=== PATIENT | female | born 1935 | race Caucasian/White ===

== ENCOUNTER → 2019-05-02 | Outpatient (CLI) | payer OTHER ==
[~2019-05-02] MED LIST: ASA81BEC PO; CRESTOR20 MG PO; EVISTA PO; EYE DROP TEARS15 ML OPHTHALMIC; FUROSEMIDE 40 M40 MG PO; HYDRALAZINE 2525 MG PO; LEVEMIR FL100 UNIT/2 SUBQ; NORVASC10 MG PO; PRESERVISION T1 EACH PO; SYNTHROID75 MCG PO; TRADJENTA5 MG PO; TYLENOL EXTRA500 MG PO; ULORIC40 MG PO; ZETIA10 MG PO
== END ==
LOC: EDUNIT# → M.MRI 16:26
DX: S83.206A Unspecified tear of unspecified meniscus, current injury, right knee, initial encounter (principal); S83.411A Sprain of medial collateral ligament of right knee, initial encounter; R41.3 Other amnesia; X58.XXXA Exposure to other specified factors, initial encounter; Y93.89 Activity, other specified; Y92.89 Other specified places as the place of occurrence of the external cause; Y99.8 Other external cause status

== ENCOUNTER 2019-05-23 08:50 | Inpatient (IN) | payer OTHER ==
[2019-05-11 09:24] LABS: URINE BILIRUBIN NEGATIVE (Negative); URINE BLOOD NEGATIVE (Negative); URINE CLARITY CLEAR; URINE COLOR YELLOW; URINE GLUCOSE-RANDOM NEGATIVE (Negative); URINE KETONES NEGATIVE (Negative); URINE LEUKOCYTES-REFLEX TRACE (Negative); URINE NITRITE-REFLEX NEGATIVE (Negative); URINE PROTEIN NEGATIVE (Negative); URINE SPECIFIC GRAVITY <= 1.005 (1.005-1.030); URINE UROBILINOGEN 0.2 E.U./dl (0.2-1.0)
[2019-05-11 09:31] LABS: HEMATOCRIT 40.6 % (37.0-47.0); HEMOGLOBIN 13.5 gm/dL (12.0-15.0); MCH 28.8 pg (26.0-34.0); MCHC 33.2 g/dL (28.0-37.0); MCV 86.7 fL (80.0-100.0); MPV 8.9 fl. (7.2-11.1); RBC 4.68 mil/uL (4.20-5.00); WBC 8.5 thou/uL (4.0-11.0)
[2019-05-11 09:32] LABS: SQUAMOUS >10 Many /LPF (0-3); URINE RBC None Seen /HPF (0-2); URINE WBC-REFLEX 0-5 Rare /HPF (0-5)
[2019-05-11 09:33] LABS: BACTERIA-REFLEX 1-9 Few /HPF (None Seen); CASTS None Seen /LPF (None Seen); CRYSTALS None Seen /LPF (None Seen); MUCUS None Seen strn/LPF (None Seen)
[2019-05-11 09:33] LABS: PROTIME 10.4 Seconds (9.20-11.50)
[2019-05-11 09:36] LABS: ALBUMIN 3.9 g/dL (3.4-5.0); CALCIUM 9.3 mg/dL (8.5-10.1); CREATININE 1.2 mg/dL (0.6-1.3); POTASSIUM 3.7 mmol/L (3.5-5.1); TOTAL BILIRUBIN 0.4 mg/dL (<0.1-1.0)
--- NOTE | 2019-05-11 11:09 | EKG ---
[place] [address] ELECTROCARDIOGRAM REPORT Name: RAJEEV DINERO Room: PRE IN [facility]#: [id number] Admission: Attend Phys: Humphrey Johnson Discharge: Date of : 39 Report #: [id number] THIS REPORT FOR: //name// [facility] Test Date: 2019-05-11 Test Time: 09:42:10 Pat Name: RAJEEV DINERO Department: Room: Gender: F In School Suspension Coordinator: : 1935 Requested By: Akash Cadena Order Number: [id number] Reading MD: Sergio Weller Measurements Intervals Ocate Rate: 83 P: 8 AL: 192 QRS: -11 QRSD: 106 T: 32 QT: 418 QTc: 492 Interpretive Statements Sinus rhythm Low voltage, extremity and precordial leads No previous ECG available for comparison Electronically Signed On 05-11-2019 11:08:56 BRAND ADVISOR by Sergio Weller [email or web address] <ELECTRONICALLY SIGNED> By: Sergio Weller MD, [facility] 05/11/19 1108 [id number] [id number] Sergio Weller MD, FACC /EPI
[~2019-05-23] VITALS: Ht 154.9 cm; Wt 74.8 kg
--- NOTE | ~2019-05-23 | PROC ---
[address] [address] PROCEDURE REPORT Name: RAJEEV DINERO Room: [address]#: [id number] Admission: 05/23/19 Attend Phys: Humphrey Johnson Discharge: 05/27/19 Date of : 39 Report #: [id number] THIS REPORT FOR: //name// For GI report, please see the Provation report in Perceptive 7 content. By: 0651Medical Records Staff KOKO /ANTONIO
[2019-05-23 09:30] VITALS: BP 111/55
[2019-05-23 13:43] VITALS: BP 122/47
--- NOTE | 2019-05-23 15:30 | NUR ---
MET WITH PT.AND FAMILY IN ROOM. FAMILY REQUESTED CM SEE PT.TODAY. PT.SLEEPY BUT ORIENTED. SHE LIVES IN [place] BUT DAUGHTER LIVES IN [place]. PT.CAME HERE FOR SURGERY. DAUGHTER IS NOT HOME EVERY DAY SO PT.WOULD LIKE TO GO TO SNF AT DISCHARGE. GAVE THEM LIST OF FACILITIES THAT CONTRACT WITH HER INSURANCE. DAUGHTER HAD BEEN TOURING SNFS. FIRST CHOICE WOULD BE [facility]. [facility]. CM SPOKE WITH LILY/[facility] AND FAXED HER WHAT WAS AVAILABLE AT THIS TIME IN CHART. ONLY FACE SHEET AND H&P. MELLISSA WILL FAX MORE INFORMATION TO [facility] WHEN BECOMES [id number].
--- NOTE | 2019-05-23 18:52 | NUR ---
PATIENT ARRIVED TO UNIT AT APPROX 1300. ALERT AND ORIENTED X4. ASSESSMENT COMPLETED AND CHARTED. VSS ON 4 LITERS 02. FLUIDS AND ANTIBIOTICS INFUSED ORDERED. PATIENT HAVING NAUSEA AND VOMITING, GIVEN ZOFRAN AND PROMETHAZINE. STARTED ON NORCO AFTER NAUSEA RESOLVED. FALL PRECAUTIONS IN PLACE. CALL LIGHT WITHIN REACH, HOURLY ROUNDS COMPLETED. NURSING WILL CONTINUE TO MONITOR.
[2019-05-23 20:30] VITALS: BP 105/44
[2019-05-23 23:50] VITALS: BP 108/54
[2019-05-24 04:00] VITALS: BP 122/61
[2019-05-24 05:09] LABS: HEMATOCRIT 35.1 % (37.0-47.0); HEMOGLOBIN 11.6 gm/dL (12.0-15.0)
--- NOTE | 2019-05-24 05:33 | NUR ---
PATIENT ALERT AND ORIENTED X 4 BUT FORGETFUL WITH DETAILS SHE IS CONVERSING WITH STAFF. PLEASANT AND COOPERATIVE. MEDICATED X 2 FOR PAIN TO GOOD EFFECT. TAKING LIQUIDS AND SNACKS WITH MEDS WITHOUT NAUSEA. BEDPAN FOR FIRST VOID. UP TO BSC THIS AM WITH GAIT BELT, MIN/MOD ASSIST OF ONE AND WALKER. CPM INITIATED AT HS -5-75 DEGREES X 2 HOURS AND TOLERATED WELL. ADEQUATE VOIDS. HEMOVAC OUT PER ORDER THIS AM. 150 ML OUTPUT FOR THE SHIFT. VITAL SIGNS STABLE ON 2.5 L/MIN O2 AND CONTINUOUS OXIMETRY. CONTINUE TO MONITOR.
[2019-05-24 07:50] VITALS: BP 125/63
[2019-05-24 10:33] VITALS: BP 125/63
--- NOTE | 2019-05-24 15:00 | NUR ---
SPOKE WITH [facility]. THEY CAN ACCEPT PT.TO A SNF BED PENDING INS.AUTH. FAXED OP REPORT,PROGRESS NOTE FROM TODAY, PT JAYDEN AND PROGRESS NOTE. WILL FAX OT NOTE WHEN AVAILABLE. SPOKE WITH BRE GARCIA AND UPDATED HER.
--- NOTE | 2019-05-24 18:48 | NUR ---
ASSUMED CARE OF PATIENT AT APPROX 0730. ALERT AND ORIENTED X4. ASSESSMENT COMPLETED AND CHARTED. VSS ON 2 LITERS 02, TITRATED DOWN TO ROOM AIR, VITALS REMAINED STABLE. PATIENTS PAIN MANAGED WITH ORAL PAIN MEDICATIONS. PATIENT UP TO CHAIR FOR MEALS, WORKING WITH THERAPIES AND PROGRESSED TOWARD GOALS. PATIENT CALLED OUT AT DINNER TIME AND STATED THAT HER PANTS AND RIANA HOSE WERE SOILED WITH URINE AFTER SHE USED THE COMMODE AND ASKED FOR A NEW PAIR OF RIANA HOSE. I WENT INTO THE ROOM TO CHECK THEN AND SET UP HER TRAY FOR DINNER. HER RIANA HOSE AND PANTS WERE DRY. I WAS INFORMED THAT A FAMILY MEMBER HAD CALLED THE UNIT AND WAS UPSET THAT THE PATIENT HAD CALLED AND SAID THAT HER PANTS WERE WET. I RETURNED TO THE ROOM AND ASKED THE PATIENT TO SHOW ME WHERE HER PANTS WERE WET. SHE PUT HER HAND OVER HER RIGHT LEG, KNEE AREA AND SAID THAT HE RPAINTS WERE SOAKING WET. I TOUCHED HER PANTS AND FELT THE COLD OF THE POLAR CARE PAD ON HER KNEE. I PUSHED HER SWEAT PANTS UP SO I COULD CHECK HER RIANA HOSE, I SWEPT MY HAND OVER THE ENTIRETY OF HER RIGHT RIANA HOSE AND IT WAS COMPLETELY DRY, WERE HER SWEAT PANTS. I ASKED THE PATIENT TO FEEL THEM WELL AND EXPLAINED THAT HER POLAR CARE WAS COLD BUT HER PANTS WERE NOT WET. I MOVED THE PATIENTS TRAY BACK IN FRONT OF HER SO SHE COULD FINISHE HER DINNER. THE PATIENT THEN BEGAN TO FOCUS HER ATTENTION ON HER BEDSIDE TABLE AND ASKED FOR A WASH CLOTH, WHICH I HANDED TO HER. THIS WAS NOT WHAT SHE WANTED, SHE SNAPPED AND SAID "NOT THAT, I WANT THAT TRAY!" I HANDED HER THE KIDNEY SHAPED CONTAINER THAT SHE WAS POINTING AT AND THEN LEFT THE ROOM. FALL PRECAUTIONS ARE IN PLACE. CALL LIGHT WITHIN REACH. HOURLY ROUNDS COMPLETED. NURSING WILL CONTINUE TO MONITOR. FAMILY IS AT BEDSIDE AT THIS TIME, PATIENT STILL INSISTS THAT HER PANTS ARE SOAKING WET...
[2019-05-24 20:00] VITALS: BP 140/67
--- NOTE | 2019-05-24 22:46 | OP ---
[facility] [address] [place] [address] OPERATIVE REPORT Name: RAJEEV DINERO Room: [address] IN .R.#: [id number] Admission: 05/23/19 Attend Phys: Humphrey Johnson Discharge: Date of : 39 Report #: [id number] THIS REPORT FOR: //name// CC: Gamal Becker DATE OF SERVICE: 05/23/2019 PREOPERATIVE DIAGNOSIS: Right knee osteoarthritis. POSTOPERATIVE DIAGNOSIS: Right knee osteoarthritis. PROCEDURE: Right total knee arthroplasty. SURGEON: Akash Cadena II, DO. CAMP ADVISOR: HARMAN Davis. ANESTHESIA: General anesthesia. ESTIMATED BLOOD LOSS: 50 mL. ANTIBIOTICS: Ancef preoperatively. DRAINS: Medium Hemovac. COMPLICATIONS: None. CONDITION OF THE PATIENT: Stable to recovery room. IMPLANTS: Listed in operative record and progress note. BRIEF HISTORY: The patient was seen in the preoperative area. Preoperative H and P was performed. Site was marked, questions were answered. Risks and benefits were discussed with the patient in detail about surgery. The patient wished to proceed, assuming all risks. DESCRIPTION OF PROCEDURE: The patient was taken to the operative suite and placed supine on the operating table in appropriate anesthesia. A well-padded tourniquet applied to the upper thigh, which was inflated to 300 mmHg after gravity exsanguination. The operative knee was sterilely prepped and draped. Surgery began by midline incision. This was carried down to the subcutaneous tissues. A medial parapatellar arthrotomy was performed and carried down to bone. The patella was then everted and excess soft tissue removed from around the femur. Femoral cutting block was then applied, checked with a drop dominic for [address] [address] OPERATIVE REPORT Name: RAJEEV DINERO Room: [address] IN [facility]#: [id number] Admission: 05/23/19 Attend Phys: Humphrey Johnson Discharge: Date of : 39 Report #: [id number] rotational alignment, pinned in appropriate position and appropriate cuts were made. A 4-in-1 cutting block was then applied, checked for rotational alignment, pinned in appropriate position and appropriate cuts were made. The tibia was then exposed. Excess meniscus was removed. Retractor was placed along the collateral ligaments. The tibial cutting block was then applied, pinned in appropriate position, checked with a drop dominic for rotational alignment and slope and appropriate cut was made. The tibial bone was removed. The tibial base plate was then applied, checked for rotational alignment with the drop dominic and pinned in appropriate position. Femur was then applied and box cut was reamed. This was then trialed with appropriate spacer, which showed excellent fit and fill and excellent stability of the knee through all range of motion. The patella was then reamed in appropriate fashion and sized to appropriate size. Three peg holes were drilled and it was then trialed and showed excellent flexion, extension, excellent tracking of the patella within the groove. These trials were removed. The tibia was punched in appropriate fashion. Bone was cleansed with Pulsavac irrigation and cement was mixed and applied to final implants. These were then malleted into position and held the knee in extension and compressed to allow cement to cure. After it cured, excess was removed using a Alamo and osteotome. Wound was then copiously irrigated and the final spacer was malleted into position. The tourniquet was deflated. Hemostasis was obtained with electrocautery. Pain cocktail was injected. PRP gel was sprayed throughout internal aspects of the knee. Medium Hemovac drain was applied. The capsule was closed with 2 FiberWire and 1 Vicryl in [id number]-[id number] fashion. Skin was closed with a 2-0 Vicryl and running 3-0 Monocryl. Dermabond and sterile dressing applied. Yasmany wrap and PolarCare applied. The patient transported to recovery room in stable condition. Counts were correct throughout the procedure. <ELECTRONICALLY SIGNED> By: Akash Cadena II, DO 05/24/196 00 26Akash Cadena II, DO /nt
[2019-05-25] VITALS: BP 149/71
[2019-05-25 04:00] VITALS: BP 143/63
[2019-05-25 04:16] LABS: HEMATOCRIT 34.4 % (37.0-47.0); HEMOGLOBIN 11.3 gm/dL (12.0-15.0)
[2019-05-25 07:04] LABS: HEMATOCRIT 33.7 % (37.0-47.0); HEMOGLOBIN 11.3 gm/dL (12.0-15.0); MCH 28.9 pg (26.0-34.0); MCHC 33.6 g/dL (28.0-37.0); MCV 86.1 fL (80.0-100.0); MPV 9.6 fl. (7.2-11.1); RBC 3.92 mil/uL (4.20-5.00); RDW-CV 13.9 % (10.5-14.5); WBC 11.3 thou/uL (4.0-11.0)
[2019-05-25 07:13] LABS: CALCIUM 8.6 mg/dL (8.5-10.1); CREATININE 1.2 mg/dL (0.6-1.3); POTASSIUM 3.8 mmol/L (3.5-5.1)
--- NOTE | 2019-05-25 07:25 | NUR ---
Oriented x 3 but forgetful. Rt knee mepilex dressing is dry and intact with polarcare in place. She was 88-90% on roomair ansd started on O2 at 2L n/c last evening. She did complain that food or meds didn't feel like they were going down her throat and she was spitting up a lot of clear phlegm. Pain meds and mucinex were crushed and put in pudding, b/c it had been a long time since she had pain meds. She did end up having emesis,zofran was given. She did sleep after that, then she was able to take tramadol at midnight and 0600 whole with water. She has slept well this shift and she was in CPM x 2 this shift -5 to 70n degrees. This am Carlos was notified of the abaove and orders were recieved.
[2019-05-25 10:20] VITALS: BP 139/60
--- NOTE | 2019-05-25 16:30 | NUR ---
CALLED PT.'S DAUGHTER,FAUSTINO, TO SPEAK WITH HER ABOUT PT.NOT DISCHARGING TODAY. SHE WAS AWARE. SHE IS HOPEFUL IT CAN BE TOMORROW. SHE WILL LEAVE WORK TO COME BE WITH HER MOM FOR DISCHARGE. DISCUSSED HER DIFFICULTY SWALLOWING AND FORGETTFULNESS. SHE FEELS SOME OF HER CONFUSION IS DUE TO HER PAIN MEDS.
--- NOTE | 2019-05-25 18:00 | NUR ---
PATIENT PLEASANT AND COOPERATIVE THRU SHIFT. COOPERATIVE W/ THERAPIES. SEE MAR FOR PAIN CONTROL. VISITORS IN PERIODICALLY THRU SHIFT. SURG SITE DRSG WNL/CDI. POLAR PACK TO AREA WHEN RESTING. UP TO CHAIR FOR MEALS. O2 95%. LS NOTED DIM IN BASES. THIGH HIGH TEDS ON BLE. USING SCDs WHILE IN BED. RESTING IN BED AT THIS TIME, HOB UP TO PATIENT COMFORT, WATCHING TV. CALL LIGHT IN REACH. HRLY ROUNDS DONE. ~TJRN
[2019-05-25 21:09] VITALS: BP 112/69
--- NOTE | 2019-05-26 05:56 | NUR ---
PATIENT WAS ABLE TO USE CPM. NO WORSENING OF PAIN DID RECEIVE PAIN MEDICATION AT BEDTIME AND SLEPT THROUGH THE NIGHT. SHE IS ABLE TO AMBULATE TO THE RESTROOM WELL WITH WALKER AND GAIT BELT. PLAN IS TO POSSIBLY D/C TO SNF.
[2019-05-26 07:58] VITALS: BP 118/42
--- NOTE | 2019-05-26 11:52 | NUR ---
NOT READY FOR DISCHARGE TODAY. GI CONSULT FOR POSSIBLE EGD. PT.TO HAVE EGD TOMORROW SHE ATE BREAKFAST TODAY. NOTIFIED [facility]. SHE SAID PT.COULD DISCHARGE TO SNF OVER THE WEEKEND IF STABLE. SHE HAS AN AUTH,GOOD FOR 7 DAYS FROM PT.S INSURANCE. IF PT.TO DISCHARGE OVER THE WEEKEND, CALL NSG.FRAME ASSEMBLER. CM WILL LEAVE CELL # FOR COAT ROOM ATTENDANT ADMISSIONS ([facility]) AT [facility], FOR FRAME ASSEMBLER. [facility]-[phone]/ [phone].
[2019-05-26 15:52] LABS: PROTIME 10.7 Seconds (9.20-11.50)
--- NOTE | 2019-05-26 18:18 | NUR ---
PT A&Ox4. VITALS STABLE. IV PATENT. UP WITH 1 USING GAIT BELT AND WALKER. TOLERATING FOOD. NPO AT MIDNIGHT FOR EGD. PAIN CONTROLLED, DENIED PAIN MEDS MAJORITY OF SHIFT. DENIED N/V. CALL LIGHT WITHIN REACH. DRESSING C/D/I. POLAR PACK IN PLACE. CPM USED TWICE FOR 120MG EACH -5-75. FALL PRECAUTIONS IN PLACE. WILL CONTINUE TO MONITOR.
[2019-05-26 20:05] VITALS: BP 100/54; BP 110/49
--- NOTE | 2019-05-27 06:40 | NUR ---
PATIENT WAS ABLE TO SLEEP MOST OF THE NIGHT. SHE DID USE CPM FOR ONE HOUR BEFORE BED AND WAS NOT REQUESTING ANY PAIN MEDICATION UPON ASSESSMENT. SHE HAS BEEN NPO SINCE MIDNIGHT FOR EGD WEDNESDAY. SHE DID NOT WANT HER SHORT ACTING INSULIN BUT DID RECEIVE HER LONG ACTING. SHE WAS COOPERATIVE THROUGHOUT SHIFT. WILL CONTINUE PLAN OF CARE.
[2019-05-27] MEDS ORDERED: PERCOCET PO (08:15)
[2019-05-27] MEDS ORDERED: XARELTO10 MG PO (08:15)
[2019-05-27] MEDS ORDERED: PROTONIX40 M1 PO (08:16)
--- NOTE | 2019-05-27 10:02 | NUR ---
PATIENT OFF UNIT TO SURGERY FOR EGD. PER BED. SURGICAL STAFF PRESENT. NO ACUTE DISTRESS NOTED. ~TJRN
[2019-05-27 13:40] VITALS: BP 125/63
--- NOTE | 2019-05-27 14:33 | NUR ---
TRANSPORT IN TO RECEIVE PATIENT FOR TRANSFER TO SNF AT [facility]. PATIENT ALERT AND ORIENTED THRU SHIFT. COOPERATIVE W/ ASSESS AND CARES. BELONGINGS GATHERED, LEFT UNIT WITH FAMILY MEMBERS AND TRANSPORT. PATIENT ESCORTED TO AWAITING VEHICLE PER WC. TEDS ON BLE. SURG SITE DRSG CDI. REPORT CALLED TO [facility]. HRLY ROUNDS DONE. ~TJRN
--- NOTE | 2019-06-03 21:42 | CON ---
[facility] [address] [place] [address] CONSULTATION Name: RAJEEV DINERO Room: [address] IN .R.#: [id number] Admission: 05/23/19 Attend Phys: Humphrey Johnson Discharge: 05/27/19 Date of : 39 Report #: [id number] THIS REPORT FOR: //name// CC: Gamal Regan DICTATED BY: Clau Pascual [facility] DATE OF SERVICE: 05/26/2019 Please note at the time of this dictation, the patient was seen and physically examined by myself. REASON FOR CONSULTATION: Dysphagia and abnormal barium swallow. HISTORY OF PRESENT ILLNESS: This is a pleasant 83-year-old female who came in for right total knee replacement and subsequently disclosed that she was having some difficulty with swallowing. A barium swallow was ordered that was performed yesterday that showed occasional spasticity of the distal esophagus with delayed emptying of the esophagus. In questioning the patient regarding her symptoms, she states this has been going on off and on for some time. She states when this happened, she just has to go and spit whatever it is up out. The patient states she had an EGD and colonoscopy in [place], [place] a long time ago. She does not recall when or what the results are. She denies any issues with acid reflux, nausea or vomiting, unless she makes herself get sick when she feels something is not going down correctly. She denies any abdominal pain. She states her bowels move usually daily, soft and formed with no bright red blood or melena noted. However, since her total knee replacement, her bowels have not moved yet. ALLERGIES: SULFA. MEDICATIONS: From home include Norvasc, Tylenol, aspirin, Zetia, Uloric, Lasix, hydralazine, Levemir, Synthroid, Tradjenta, Evista, Crestor, eye drops and a preservation tablet. PAST MEDICAL HISTORY: Significant for hypertension, diabetes, osteoporosis, osteoarthritis, stage 3 kidney disease, hypercholesterolemia, history of a TIA and gout. PAST SURGICAL HISTORY: She had a detached retina and her recent right total knee replacement. FAMILY HISTORY: [place] [address] CONSULTATION Name: RAJEEV DINERO Room: [address]#: [id number] Admission: 05/23/19 Attend Phys: Humphrey Johnson Discharge: 05/27/19 Date of : 39 Report #: [id number] SOCIAL HISTORY: Denies any alcohol, tobacco, or illegal drug use. REVIEW OF SYSTEMS: Twelve-point review of systems is essentially negative except what is mentioned in the HPI. PHYSICAL EXAMINATION: VITAL SIGNS: Temperature 36.8, pulse 91, respirations 18, blood pressure 118/42. HEART: Regular rate and rhythm. LUNGS: Clear. ABDOMEN: Soft, positive bowel sounds in all 4 quadrants with no masses or tenderness noted. LABORATORIES: Hemoglobin 11.3, white count 11.3, platelets 332. PT 10.4, INR 1. GFR is 43. Barium swallow: Occasional spasticity of esophagus with some delayed emptying of the esophagus noted. IMPRESSION: 1. Dysphagia. 2. Abnormal barium swallow. 3. Status post right total knee replacement. 4. Chronic kidney disease. PLAN: 1. EGD tomorrow with possible Botox with Dr. Knight. 2. Further recommendations to be made once the procedure has been performed. Thank you for allowing us to participate in this patient's care. Please do not hesitate to call with any questions in regard to this consult. <ELECTRONICALLY SIGNED> By: Ashok Rees DO 06/03/19 [id number] Rees DO /nt
== END 2019-05-27 14:33 | DRG 470 ==
LOC: M.PRE → M.TBA 08:50 → M.ORTHSURG 08:50 → M.PRE 09:00 → M.ORTHSURG 13:05 → M.PRE 16:27 → M.ORTHSURG 05-27 14:33
PROVIDERS: Internal Medicine; Nurse Practitioner Adult Health; Orthopaedic Surgery; ADMIT Internal Medicine
PROC: 0SRC0J9 Replacement of Right Knee Joint with Synthetic Substitute, Cemented, Open Approach (ICD-10-PCS; principal; 2019-05-23)
PROC: 0D738ZZ Dilation of Lower Esophagus, Via Natural or Artificial Opening Endoscopic (ICD-10-PCS; 2019-05-27)
DX: M17.11 Unilateral primary osteoarthritis, right knee (principal); D62 Acute posthemorrhagic anemia; K44.9 Diaphragmatic hernia without obstruction or gangrene; K22.2 Esophageal obstruction; K21.0 Gastro-esophageal reflux disease with esophagitis; E11.22 Type 2 diabetes mellitus with diabetic chronic kidney disease; E78.00 Pure hypercholesterolemia, unspecified; I12.9 Hypertensive chronic kidney disease with stage 1 through stage 4 chronic kidney disease, or unspecified chronic kidney disease; E78.5 Hyperlipidemia, unspecified; M19.90 Unspecified osteoarthritis, unspecified site; N18.3 Chronic kidney disease, stage 3 (moderate); M81.0 Age-related osteoporosis without current pathological fracture; M10.9 Gout, unspecified; R13.10 Dysphagia, unspecified; Z88.2 Allergy status to sulfonamides; Z86.73 Personal history of transient ischemic attack (TIA), and cerebral infarction without residual deficits

== ENCOUNTER → 2019-07-03 | Outpatient (CLI) | payer OTHER ==
[~2019-07-03] MED LIST changes: +PERCOCET PO; +PROTONIX40 M1 PO; +XARELTO10 MG PO
== END ==
LOC: M.RAD 12:41
DX: M25.461 Effusion, right knee (principal); M85.80 Other specified disorders of bone density and structure, unspecified site; Z96.651 Presence of right artificial knee joint

== ENCOUNTER → 2019-07-27 | Outpatient (CLI) | payer OTHER ==
[2019-07-27 07:11] LABS: POTASSIUM 3.5 mmol/L (3.5-5.1)
== END ==
LOC: M.LAB 04:07
PROVIDERS: Anesthesiology
DX: E87.6 Hypokalemia (principal); E11.9 Type 2 diabetes mellitus without complications